=== PATIENT | female | born 1950 | race Caucasian/White ===

== ENCOUNTER → 2017-01-19 | Outpatient (CLI) | payer MEDICARE ==
--- NOTE | 2017-01-19 14:11 | CTL ---
EXAMINATION TYPE: CT Low Dose Lung DATE OF EXAM ORDERED: 01/19/2017 HISTORY: Lung cancer screening CT DLP: 60.[address] CTDI: 1.8 mGy Automated exposure control for dose reduction was used. COMPARISON: None TECHNIQUE: Low dose computed tomography scan was performed through the chest at 1 mm thick sections a nd reconstructed images in the coronal plane at [address] DIAGNOSTIC QUALITY: Satisfactory FINDINGS: LUNG NODULES: There is a 3 mm subpleural nodule within the left upper lobe. LUNGS: There is apical pleural thickening bilaterally and evidence of mild COPD. No sizable pleural effusion or pericardial effusion. Small hiatal hernia noted. No overt failure. Subsegmental consolidation involving both lungs suggesting atelectasis Atherosclerotic change of the aorta. Calcification the tracheobronchial tree and coronary artery calc ification noted. There is evidence of mild central bronchiectasis. Hypertrophic and degenerative changes of the spine are noted. IMPRESSION: Benign findings. A single 3 mm subpleural nodule noted. Findings suggest COPD. FOLLOW UP CT CHEST RECOMMENDATION: [address] LUNG RAD: 2
== END | disposition home or self-care (01) ==
LOC: RADCTMAIN 13:19
PROVIDERS: ATTEND Internal Medicine Geriatric Medicine
DX: Z12.2 Encounter for screening for malignant neoplasm of respiratory organs (principal); R91.1 Solitary pulmonary nodule; Z87.891 Personal history of nicotine dependence

== ENCOUNTER → 2019-05-25 | Outpatient (CLI) | payer MEDICARE | END | disposition home or self-care (01) | LOC: LABWHC1 11:10 | PROVIDERS: ATTEND Psychiatry & Neurology Neurology | DX: R41.3 Other amnesia (principal); Z86.73 Personal history of transient ischemic attack (TIA), and cerebral infarction without residual deficits | CPT/HCPCS: 36415; 82607; 84439; 84443 ==